=== PATIENT | female | born 1985 | race Caucasian/White ===

== ENCOUNTER 2019-11-14 11:43 | Inpatient (IN) | payer MEDICAID ==
[~2019-11-14] VITALS: Ht 152.4 cm; Wt 82.2 kg
[2019-11-14 13:30] VITALS: BP 138/82
[2019-11-14 14:01] LABS: BASO # 0.1 10*3/uL (0.0-0.1); BASO % 0.7 % (0.0-1.0); EOS # 0.2 10*3/uL (0.0-0.4); EOS % 2.2 % (1.0-4.0); HEMATOCRIT 34.5 % (37.0-47.0); HEMOGLOBIN 10.4 g/dl (12.0-16.0); LYMPH % 38.4 % (27.0-41.0); MEAN CELL VOLUME 77.5 fl (81.0-99.0); MEAN CORPUSCULAR HGB 23.4 pg (27.0-31.0); MEAN CORPUSCULAR HGB CONC 30.1 g/dl (33.0-37.0); MEAN PLATELET VOLUME 9.5 fl (9.6-12.3); MONO # 0.7 10*3/uL (0.1-1.0); NEUT # 5.2 10*3/uL (2.3-7.9); NEUT % 49.8 % (47.0-73.0); PLATELET COUNT AUTOMATED 476 10*3/uL (130-400); RED BLOOD COUNT 4.45 10*6/uL (4.10-5.10); WHITE BLOOD COUNT 10.5 10*3/uL (4.8-10.8)
[2019-11-14] MEDS ORDERED: PRAZOSIN HCL1 MG PO (14:11)
[2019-11-14] MEDS ORDERED: DIAZEPAM5 MG PO (14:12)
[2019-11-14] MEDS ORDERED: SUMATRIPTAN SU100 M1 PO (14:12)
[2019-11-14 14:14] LABS: INTERNATIONAL NORM RATIO 0.9 (2.0-3.5)
[2019-11-14] MEDS ORDERED: DULOXETINE HCL60 MG PO (14:14)
[2019-11-14] MEDS ORDERED: DULOXETINE HCL20 MG PO (14:14)
[2019-11-14] MEDS ORDERED: GABAPENTIN600 MG PO (14:14)
[2019-11-14 14:15] LABS: ALBUMIN 3.2 gm/dl (3.1-4.5); ALKALINE PHOSPHATASE 104 U/L (45-117); BUN 12 mg/dl (7-24); CHLORIDE 110 mmol/L (98-107); CREATININE 0.87 mg/dL (0.55-1.02); ETHYL ALCOHOL < 3.0 mg/dl (<3); POTASSIUM 3.1 mmol/L (3.5-5.1); SGOT/AST 14 IU/L (3-35); SGPT/ALT 51 U/L (12-78); SODIUM 145 mmol/L (136-145); TOTAL PROTEIN 6.5 gm/dL (6.4-8.2)
[2019-11-14] MEDS ORDERED: TRINTELLIX20 MG PO (14:15)
[2019-11-14] MEDS ORDERED: TOPIRAMATE25 M3 PO (14:15)
[2019-11-14] MEDS ORDERED: ALBUTEROL SULFAT2 MG PO (14:15)
[2019-11-14] MEDS ORDERED: OMEPRAZOLE40 MG PO (14:16)
[2019-11-14] MEDS ORDERED: VITAMIN D50000 UNIT PO (14:16)
[2019-11-14] MEDS ORDERED: METOCLOPRAMIDE H5 M1 PO (14:17)
[2019-11-14] MEDS ORDERED: IBU800 M1 PO (14:17)
[2019-11-14 14:18] VITALS: BP 138/82
[2019-11-14] MEDS ORDERED: BRONKAID DUAL1 EACH PO (14:18)
[2019-11-14] MEDS ORDERED: GOOD NEIGHBOR L10 MG PO (14:18)
[2019-11-14] MEDS ORDERED: LIDODERM1 EACH TD (14:19)
[2019-11-14] MEDS ORDERED: VALSARTAN40 MG PO (14:19)
[2019-11-14] MEDS ORDERED: LOPERAMIDE HCL2 MG PO (14:20)
[2019-11-14] MEDS ORDERED: FAMOTIDINE20 M1 PO (14:21)
[2019-11-14 14:39] LABS: BILIRUBIN NEGATIVE (NEGATIVE); BLOOD NEGATIVE (NEGATIVE); CLARITY SL CLOUDY (CLEAR); COLOR YELLOW (YELLOW); GLUCOSE NEGATIVE (NEGATIVE); KETONE NEGATIVE (NEGATIVE); LEUKO ESTERASE NEGATIVE (NEGATIVE); NITRITE NEGATIVE (NEGATIVE); SPECIFIC GRAVITY 1.025 (1.005-1.030); UROBILINOGEN 0.2 E.U./dl (0.2-1.0)
[2019-11-14 14:46] LABS: URINE AMPHETAMINES > 1000 (1000ng/ml); URINE BARBITURATES < 200 (200ng/ml); URINE BENZODIAZEPINES > 200 (200ng/ml); URINE CANNABINOIDS (THC) < 50 (50ng/ml); URINE COCAINE < 300 (300ng/ml); URINE METHADONE < 300 (300ng/ml); URINE OPIATES < 300 (300ng/ml); URINE PHENCYCLIDINE < 25 (25ng/ml)
[2019-11-14 14:49] LABS: BACTERIA 2+; EPITHELIAL CELLS TNTC; FINE GRANULAR CAST 0-2; MUCOUS TRACE; RBC 0-2 rbc/hpf (0-2)
[2019-11-14 16:00] VITALS: BP 133/81
[2019-11-14 17:04] VITALS: BP 110/52
[2019-11-14 17:27] VITALS: BP 138/70
[2019-11-14 20:00] VITALS: BP 104/52
[2019-11-15] VITALS: BP 109/74
[2019-11-15 08:00] VITALS: BP 114/74
[2019-11-15 12:00] VITALS: BP 118/78
[2019-11-15 16:00] VITALS: BP 114/98
[2019-11-15 20:00] VITALS: BP 116/73
[2019-11-16] VITALS: BP 119/64
[2019-11-16 08:00] VITALS: BP 108/59
[2019-11-16 12:00] VITALS: BP 133/71
[2019-11-16 16:00] VITALS: BP 121/65
[2019-11-16 20:00] VITALS: BP 112/64
[2019-11-17] VITALS (8 sets, daily range): BP systolic 88–118; BP diastolic 26–67
[2019-11-17 06:12] LABS: BASO # 0.1 10*3/uL (0.0-0.1); BASO % 0.6 % (0.0-1.0); EOS # 0.3 10*3/uL (0.0-0.4); EOS % 3.8 % (1.0-4.0); HEMATOCRIT 34.5 % (37.0-47.0); HEMOGLOBIN 10.2 g/dl (12.0-16.0); LYMPH # 1.8 10*3/uL (1.3-4.4); LYMPH % 22.6 % (27.0-41.0); MEAN CORPUSCULAR HGB 23.9 pg (27.0-31.0); MEAN CORPUSCULAR HGB CONC 29.6 g/dl (33.0-37.0); MONO # 0.5 10*3/uL (0.1-1.0); MONO % 6.7 % (3.0-9.0); NEUT # 5.2 10*3/uL (2.3-7.9); NEUT % 65.4 % (47.0-73.0); PLATELET COUNT AUTOMATED 415 10*3/uL (130-400); RED BLOOD COUNT 4.26 10*6/uL (4.10-5.10); RED CELL DISTRI WIDTH 16.6 % (0-14.5); WHITE BLOOD COUNT 7.9 10*3/uL (4.8-10.8)
[2019-11-17 06:23] LABS: ALBUMIN 3.1 gm/dl (3.1-4.5); ALKALINE PHOSPHATASE 128 U/L (45-117); BUN 20 mg/dl (7-24); CHLORIDE 107 mmol/L (98-107); CREATININE 1.07 mg/dL (0.55-1.02); POTASSIUM 3.7 mmol/L (3.5-5.1); SGOT/AST 60 IU/L (3-35); SGPT/ALT 79 U/L (12-78); SODIUM 139 mmol/L (136-145); TOTAL PROTEIN 6.3 gm/dL (6.4-8.2)
[2019-11-18] VITALS: BP 95/39; BP 98/56
[2019-11-18 08:00] VITALS: BP 96/41
== END 2019-11-18 11:41 | DRG 773 ==
LOC: 5E 11:43
PROVIDERS: Internal Medicine; Student in an Organized Health Care Education/Training Program; ADMIT Family Medicine
DX: F11.23 Opioid dependence with withdrawal (principal); F41.9 Anxiety disorder, unspecified; G25.81 Restless legs syndrome; F17.210 Nicotine dependence, cigarettes, uncomplicated; F15.10 Other stimulant abuse, uncomplicated; F19.90 Other psychoactive substance use, unspecified, uncomplicated; F32.9 Major depressive disorder, single episode, unspecified; G70.2 Congenital and developmental myasthenia; D50.9 Iron deficiency anemia, unspecified; D47.3 Essential (hemorrhagic) thrombocythemia; E87.6 Hypokalemia; E87.8 Other disorders of electrolyte and fluid balance, not elsewhere classified; R73.9 Hyperglycemia, unspecified; E44.1 Mild protein-calorie malnutrition; E66.09 Other obesity due to excess calories; Z68.35 Body mass index [BMI] 35.0-35.9, adult; Z71.6 Tobacco abuse counseling; Z90.710 Acquired absence of both cervix and uterus; Z98.51 Tubal ligation status; Z79.899 Other long term (current) drug therapy; Z88.8 Allergy status to other drugs, medicaments and biological substances; Z88.1 Allergy status to other antibiotic agents; Z91.040 Latex allergy status